=== PATIENT | female | born 1970 ===

== ENCOUNTER 2017-04-12 10:00 | Emergency (ER) | payer SELFPAY ==
[2017-04-13 10:08] LABS: URINE BILIRUBIN NEGATIVE (NEGATIVE); URINE BLOOD LARGE (NEGATIVE); URINE COLOR YELLOW (YELLOW); URINE GLUCOSE (UA) NEGATIVE (Normal); URINE KETONE NEGATIVE (NEGATIVE); URINE PROTEIN 30 mg/dL (NEGATIVE)
[2017-04-13 10:09] LABS: RBC URINE 254 /hpf (0-3); URINE LEUKOCYTE ESTERASE LARGE Leu/uL (Negative); URINE UROBILINOGEN 0.2-1.0 mg/dL (0.2-1.0); WBC URINE 187 /hpf (0-5)
== END 2017-04-12 10:39 | disposition home or self-care (01) ==
LOC: H.ER 10:00 → H.EDERROR 10:00
DX: N39.0 Urinary tract infection, site not specified (principal)